=== PATIENT | female | born 1950 | race Caucasian/White ===

== ENCOUNTER 2018-03-30 09:11 | Emergency (ER) | payer MEDICAID ==
[~2018-03-30] VITALS: Ht 162.6 cm; Wt 62.7 kg
[~2018-03-30 09:11] MED LIST: AMO500 PO; BIA500 PO; GLIPIZIDE10 MG PO; GLU850 PO; GLUCOTROL10 MG PO; JANUVIA100 M1 PO; LAC PO; METFORMIN HCL1000 MG PO; MOTRIN800 MG; MOTRIN800 MG PO; NEU300 PO; PEP20 PO; PINK BISMU PO; PRILOSEC OTC20 M1 PO; REGLAN5 M1 PO; ZESTRIL20 MG PO
[2018-03-30 09:17] VITALS: Ht 162.6 cm; Wt 62.7 kg
[2018-03-30 09:58] LABS: BASOPHIL % 0.3 % (0-2); PLATELET COUNT 291 x10^3mcL (130-400); RED CELL DISTRIBUTION WIDTH 12.9 % (11.5-14.5)
[2018-03-30 10:10] LABS: CALCIUM 8.9 mg/dL (8.5-10.1); CARBON DIOXIDE 27.7 mmol/L (21-32); CREATININE SERUM 1.1 mg/dL (0.6-1.0); POTASSIUM SERUM 3.6 mmol/L (3.5-5.1)
[2018-03-30 10:16] LABS: ALBUMIN 3.8 g/dL (3.4-5.0); BILIRUBIN TOTAL 0.52 mg/dL (0.20-1.00)
[2018-03-30 10:17] LABS: TOTAL PROTEIN, SERUM 8.3 g/dL (6.4-8.2)
[2018-03-30 10:49] VITALS: BP 119/61
== END 2018-03-30 12:01 | disposition home or self-care (01) ==
LOC: ED 09:11
PROVIDERS: Emergency Medicine
DX: E11.40 Type 2 diabetes mellitus with diabetic neuropathy, unspecified (principal); E11.65 Type 2 diabetes mellitus with hyperglycemia; R10.13 Epigastric pain; I10 Essential (primary) hypertension
CPT/HCPCS: 82962; J1885; J7030; Q0092

== ENCOUNTER 2018-11-17 22:35 | Emergency (ER) | payer MEDICAID ==
[~2018-11-17] VITALS: Ht 152.4 cm; Wt 60.8 kg
[2018-11-17 22:47] VITALS: Ht 152.4 cm; Wt 60.8 kg
[2018-11-18 01:11] VITALS: BP 125/62
== END 2018-11-18 01:11 | disposition home or self-care (01) ==
LOC: ED 22:35
DX: R51 Headache (principal); R11.0 Nausea; I10 Essential (primary) hypertension; E11.9 Type 2 diabetes mellitus without complications

== ENCOUNTER 2018-11-26 08:01 | Emergency (ER) | payer MEDICAID ==
[~2018-11-26] VITALS: Ht 152.4 cm; Wt 60.8 kg
[2018-11-26 08:07] VITALS: Ht 152.4 cm; Wt 60.8 kg
[2018-11-26 10:40] VITALS: BP 143/73
== END 2018-11-26 11:00 | disposition home or self-care (01) ==
LOC: ED 08:01
DX: M54.42 Lumbago with sciatica, left side (principal); I10 Essential (primary) hypertension; E11.9 Type 2 diabetes mellitus without complications
CPT/HCPCS: Q0162